=== PATIENT | male | born 1935 | race Caucasian/White ===

== ENCOUNTER 2022-05-23 15:23 | Inpatient (IN) | payer BC, OTHER ==
[~2022-05-23] VITALS: Ht 167.6 cm; Wt 68.2 kg
[2022-05-23 15:36] VITALS: BP_SYST 133
[2022-05-23] MEDS ORDERED: HYDROcodone/ACETAMIN 10-325 MG TAB PO ONE (15:45)
[2022-05-23] MEDS ORDERED: KETOROLAC TROMETHAMINE 30 MG VIAL IM ONE (15:45)
[2022-05-23] MEDS ORDERED: DILTIAZEM HCL 60 MG TABLET PO ONE (16:00)
[2022-05-23] MEDS ORDERED: dilTIAZem HCL IVP 5 MG/ML VIAL IVP ONE (16:00)
[2022-05-23 16:19] LABS: BASOPHILS % (AUTO) 0.5 % (0.0-2.0); EOSINOPHILS # (AUTO) 0.2 K/uL (0.0-0.4); EOSINOPHILS % (AUTO) 1.5 % (0.0-4.0); HEMATOCRIT 39.9 % (36-54); HEMOGLOBIN 13.3 g/dL (14.0-18.0); LYMPHOCYTES # (AUTO) 0.9 K/uL (1.0-5.5); LYMPHOCYTES % (AUTO) 9.4 % (20.5-51.5); MEAN CORPUSCULAR HEMOGLOBIN 28 pg (27-31); MEAN CORPUSCULAR HGB CONC 33 % (32-36); MEAN CORPUSCULAR VOLUME 85 fL (79.0-98.0); MONOCYTES # (AUTO) 0.6 K/uL (0.0-1.0); MONOCYTES % (AUTO) 6.3 % (1.7-9.3); NEUTROPHILS # (AUTO) 8.2 K/uL (1.8-7.7); NEUTROPHILS % (AUTO) 82.3 % (40.0-70.0); PLATELET COUNT (AUTO) 299 K/uL (130-430); RED BLOOD CELL COUNT(AUTO) 4.71 MIL/uL (4.2-6.2); RED CELL DISTRIBUTION WIDTH 18.4 % (9.0-15.0); WHITE BLOOD COUNT (AUTO) 9.9 K/uL (4.8-10.8)
[2022-05-23 16:44] LABS: ANION GAP 5 (5-15); CALCIUM 9.4 mg/dL (8.4-11.0); CHLORIDE 102 mmol/L (98-107); CREATININE 0.94 mg/dL (0.55-1.30); GLUCOSE 94 mg/dL (70-99); UREA NITROGEN, BLOOD 12 mg/dL (8-21)
[2022-05-23 16:48] LABS: INR 1.2 (0.80-1.20); PROTHROMBIN TIME 12.5 SECS (9.5-12.5)
[2022-05-23 16:51] LABS: ALANINE AMINOTRANSFERASE 13 U/L (12-78); ALBUMIN 2.9 g/dL (3.4-4.8); ASPARTATE AMINOTRANSFERASE 16 U/L (10-37); TOTAL BILIRUBIN 0.6 mg/dL (0.0-1.0)
[2022-05-23] MEDS ORDERED: CAS50 (20:18)
[2022-05-23] MEDS ORDERED: MECL-225 PO (20:29)
[2022-05-23] MEDS ORDERED: CALC117719 (20:29)
[2022-05-23] MEDS ORDERED: TAMS-11 PO (20:29)
[2022-05-23] MEDS ORDERED: MES60 PO (20:29)
[2022-05-23] MEDS ORDERED: APIX5TAB4 PO (20:29)
[2022-05-23] MEDS ORDERED: DOCU-144 PO (20:29)
[2022-05-23] MEDS ORDERED: CLON0.1T PO (20:29)
[2022-05-23] MEDS ORDERED: OMEP20CA15 PO (20:29)
[2022-05-23] MEDS ORDERED: DILT120C89 PO (20:29)
[2022-05-23 21:05] VITALS: BP_SYST 144
[2022-05-23] MEDS ORDERED: ACETAMINOPHEN 325 MG TABLET PO PRN ×3 (22:45→23:30)
[2022-05-23] MEDS ORDERED: IBUPROFEN 600 MG TABLET PO PRN ×2 (22:45→23:30)
[2022-05-23] MEDS ORDERED: KETOROLAC TROMETHAMINE 30 MG VIAL IVP PRN ×2 (22:45→23:30)
[2022-05-23] MEDS ORDERED: KETOROLAC TROMETHAMINE 30 MG VIAL IVP SCH (22:45)
[2022-05-23] MEDS ORDERED: cloNIDine HCL 0.1 MG TABLET PO PRN (23:30)
[2022-05-23] MEDS ORDERED: LORazepam 2 MG/ML VIAL IVP PRN (23:30)
[2022-05-23] MEDS ORDERED: ONDANSETRON HCL 4 MG/2 ML VIAL IVP PRN (23:30)
[2022-05-24] VITALS: BP_SYST 135
[2022-05-24 05:52] LABS: BASOPHILS # (AUTO) 0.1 K/uL (0.0-0.2); EOSINOPHILS # (AUTO) 0.5 K/uL (0.0-0.4); EOSINOPHILS % (AUTO) 6.8 % (0.0-4.0); HEMATOCRIT 39.2 % (36-54); HEMOGLOBIN 12.9 g/dL (14.0-18.0); LYMPHOCYTES # (AUTO) 1.4 K/uL (1.0-5.5); LYMPHOCYTES % (AUTO) 19.4 % (20.5-51.5); MEAN CORPUSCULAR HEMOGLOBIN 28 pg (27-31); MEAN CORPUSCULAR HGB CONC 33 % (32-36); MEAN CORPUSCULAR VOLUME 85 fL (79.0-98.0); MONOCYTES # (AUTO) 0.6 K/uL (0.0-1.0); MONOCYTES % (AUTO) 9.1 % (1.7-9.3); NEUTROPHILS # (AUTO) 4.4 K/uL (1.8-7.7); NEUTROPHILS % (AUTO) 63.7 % (40.0-70.0); PLATELET COUNT (AUTO) 292 K/uL (130-430); RED BLOOD CELL COUNT(AUTO) 4.61 MIL/uL (4.2-6.2); RED CELL DISTRIBUTION WIDTH 18.4 % (9.0-15.0)
[2022-05-24 06:25] LABS: ALANINE AMINOTRANSFERASE 14 U/L (12-78); ALBUMIN 2.6 g/dL (3.4-4.8); ANION GAP 6 (5-15); ASPARTATE AMINOTRANSFERASE 15 U/L (10-37); CALCIUM 9.2 mg/dL (8.4-11.0); CHLORIDE 105 mmol/L (98-107); CHOLESTEROL 177 mg/dL (<200); CREATININE 0.82 mg/dL (0.55-1.30); GLUCOSE 76 mg/dL (70-99); HDL CHOLESTEROL 59 mg/dL (>45); PHOSPHORUS 3.1 mg/dL (2.7-4.5); THYROID STIMULATING HORMONE 1.95 uIu/mL (0.34-4.82); TOTAL BILIRUBIN 0.7 mg/dL (0.0-1.0); TRIGLYCERIDES 55 mg/dL (30-150); UREA NITROGEN, BLOOD 14 mg/dL (8-21)
[2022-05-24] MEDS: NORMAL SALINE 5 ML DISP.SYRIN IVF SCH ×3 (06:48→22:48)
[2022-05-24 08:00] VITALS: BP_SYST 120; BP_SYST 141
[2022-05-24] MEDS: PANTOPRAZOLE SODIUM 40 MG TAB PO SCH (08:26)
[2022-05-24] MEDS: TAMSULOSIN HCL 0.4 MG CAP PO SCH (08:26)
[2022-05-24] MEDS: CALCIUM CARBONATE 500 MG/ TAB.CHEW PO SCH ×4 (08:28→22:47)
[2022-05-24] MEDS: DOCUSATE SODIUM 100 MG CAPSULE PO SCH ×2 (08:28→22:47)
[2022-05-24] MEDS: DILTIAZEM HCL 120 MG CAP.SR.24H PO SCH (08:28)
[2022-05-24] MEDS: pyRIDostigmine bromide 60 MG TABLET PO SCH ×2 (08:28→22:47)
[2022-05-24] MEDS: BICALUTAMIDE 50 MG TABLET PO SCH (08:39)
[2022-05-24] MEDS ORDERED: OMEPRAZOLE Non-Formulary 20 MG CAPSULE.DR PO SCH (09:00)
[2022-05-24] MEDS ORDERED: APIXABAN 2.5 MG TABLET PO SCH (09:00)
[2022-05-24 11:29] VITALS: BP_SYST 128
[2022-05-24] MEDS ORDERED: METOPROLOL SUCCINATE 25 MG TAB.SR.24H (TOPROL XL) PO ONE (12:45)
[2022-05-24 15:35] VITALS: BP_SYST 107
[2022-05-24 21:10] VITALS: BP_SYST 137
[2022-05-25] VITALS: BP_SYST 132
[2022-05-25 03:39] VITALS: BP_SYST 137
[2022-05-25 05:51] LABS: BASOPHILS # (AUTO) 0.1 K/uL (0.0-0.2); BASOPHILS % (AUTO) 0.6 % (0.0-2.0); EOSINOPHILS # (AUTO) 0.6 K/uL (0.0-0.4); EOSINOPHILS % (AUTO) 7.2 % (0.0-4.0); HEMATOCRIT 38.8 % (36-54); HEMOGLOBIN 12.8 g/dL (14.0-18.0); LYMPHOCYTES # (AUTO) 1.5 K/uL (1.0-5.5); LYMPHOCYTES % (AUTO) 18.1 % (20.5-51.5); MEAN CORPUSCULAR HEMOGLOBIN 28 pg (27-31); MEAN CORPUSCULAR HGB CONC 33 % (32-36); MEAN CORPUSCULAR VOLUME 84 fL (79.0-98.0); MONOCYTES # (AUTO) 0.7 K/uL (0.0-1.0); MONOCYTES % (AUTO) 8.5 % (1.7-9.3); NEUTROPHILS # (AUTO) 5.4 K/uL (1.8-7.7); NEUTROPHILS % (AUTO) 65.6 % (40.0-70.0); PLATELET COUNT (AUTO) 294 K/uL (130-430); RED BLOOD CELL COUNT(AUTO) 4.59 MIL/uL (4.2-6.2); RED CELL DISTRIBUTION WIDTH 18.3 % (9.0-15.0); WHITE BLOOD COUNT (AUTO) 8.2 K/uL (4.8-10.8)
[2022-05-25] MEDS: NORMAL SALINE 5 ML DISP.SYRIN IVF SCH ×3 (06:01→22:40)
[2022-05-25 06:13] LABS: ANION GAP 8 (5-15); CALCIUM 9.4 mg/dL (8.4-11.0); CHLORIDE 105 mmol/L (98-107); CREATININE 0.82 mg/dL (0.55-1.30); GLUCOSE 86 mg/dL (70-99); UREA NITROGEN, BLOOD 14 mg/dL (8-21)
[2022-05-25 08:00] VITALS: BP_SYST 152
[2022-05-25] MEDS: PANTOPRAZOLE SODIUM 40 MG TAB PO SCH (08:48)
[2022-05-25] MEDS: DILTIAZEM HCL 120 MG CAP.SR.24H PO SCH (08:48)
[2022-05-25] MEDS: METOPROLOL SUCCINATE 25 MG TAB.SR.24H (TOPROL XL) PO SCH (08:48)
[2022-05-25] MEDS: TAMSULOSIN HCL 0.4 MG CAP PO SCH (08:48)
[2022-05-25] MEDS: pyRIDostigmine bromide 60 MG TABLET PO SCH ×2 (08:48→22:33)
[2022-05-25] MEDS: CALCIUM CARBONATE 500 MG/ TAB.CHEW PO SCH ×4 (08:49→22:33)
[2022-05-25] MEDS: BICALUTAMIDE 50 MG TABLET PO SCH (08:49)
[2022-05-25] MEDS: DOCUSATE SODIUM 100 MG CAPSULE PO SCH ×2 (08:49→22:33)
[2022-05-25 11:33] VITALS: BP_SYST 149
[2022-05-25 15:42] VITALS: BP_SYST 106
[2022-05-25 20:30] VITALS: BP_SYST 118
[2022-05-26 00:26] VITALS: BP_SYST 118
[2022-05-26 00:34] VITALS: BP_SYST 146
[2022-05-26] MEDS: NORMAL SALINE 5 ML DISP.SYRIN IVF SCH ×2 (05:27→13:36)
[2022-05-26 05:31] LABS: ANION GAP 9 (5-15); CALCIUM 9.5 mg/dL (8.4-11.0); CHLORIDE 103 mmol/L (98-107); CREATININE 0.85 mg/dL (0.55-1.30); GLUCOSE 83 mg/dL (70-99); UREA NITROGEN, BLOOD 15 mg/dL (8-21)
[2022-05-26 05:39] LABS: BASOPHILS % (AUTO) 0.5 % (0.0-2.0); EOSINOPHILS # (AUTO) 0.4 K/uL (0.0-0.4); EOSINOPHILS % (AUTO) 4.8 % (0.0-4.0); HEMOGLOBIN 13.1 g/dL (14.0-18.0); LYMPHOCYTES # (AUTO) 1.8 K/uL (1.0-5.5); LYMPHOCYTES % (AUTO) 22.6 % (20.5-51.5); MEAN CORPUSCULAR HEMOGLOBIN 28 pg (27-31); MEAN CORPUSCULAR HGB CONC 33 % (32-36); MEAN CORPUSCULAR VOLUME 85 fL (79.0-98.0); MONOCYTES # (AUTO) 0.6 K/uL (0.0-1.0); MONOCYTES % (AUTO) 8.1 % (1.7-9.3); NEUTROPHILS # (AUTO) 5.1 K/uL (1.8-7.7); PLATELET COUNT (AUTO) 297 K/uL (130-430); RED BLOOD CELL COUNT(AUTO) 4.72 MIL/uL (4.2-6.2); RED CELL DISTRIBUTION WIDTH 18.7 % (9.0-15.0)
[2022-05-26 08:00] VITALS: BP_SYST 132
[2022-05-26] MEDS: TAMSULOSIN HCL 0.4 MG CAP PO SCH (08:27)
[2022-05-26] MEDS: CALCIUM CARBONATE 500 MG/ TAB.CHEW PO SCH ×3 (08:27→17:14)
[2022-05-26] MEDS: pyRIDostigmine bromide 60 MG TABLET PO SCH (08:27)
[2022-05-26] MEDS: PANTOPRAZOLE SODIUM 40 MG TAB PO SCH (08:27)
[2022-05-26] MEDS: DOCUSATE SODIUM 100 MG CAPSULE PO SCH (08:27)
[2022-05-26] MEDS: METOPROLOL SUCCINATE 25 MG TAB.SR.24H (TOPROL XL) PO SCH (08:28)
[2022-05-26] MEDS: DILTIAZEM HCL 120 MG CAP.SR.24H PO SCH (08:28)
[2022-05-26] MEDS: BICALUTAMIDE 50 MG TABLET PO SCH (08:29)
[2022-05-26 11:26] VITALS: BP_SYST 143
[2022-05-26 15:21] VITALS: BP_SYST 120
[2022-05-26 16:26] VITALS: BP_SYST 120
== END 2022-05-26 18:40 | disposition home health service (06) | DRG 552 ==
LOC: SED 15:23 → STU 18:38
PROVIDERS: ADMIT Preventive Medicine Preventive Medicine/Occupational Environmental Medicine; ATTEND Preventive Medicine Preventive Medicine/Occupational Environmental Medicine
DX: M51.36 Other intervertebral disc degeneration, lumbar region (principal); E44.1 Mild protein-calorie malnutrition; I48.91 Unspecified atrial fibrillation; W01.0XXA Fall on same level from slipping, tripping and stumbling without subsequent striking against object, initial encounter; E87.6 Hypokalemia; I25.10 Atherosclerotic heart disease of native coronary artery without angina pectoris; I10 Essential (primary) hypertension; Z20.822 Contact with and (suspected) exposure to COVID-19; I35.0 Nonrheumatic aortic (valve) stenosis; E78.5 Hyperlipidemia, unspecified; F03.90 Unspecified dementia, unspecified severity, without behavioral disturbance, psychotic disturbance, mood disturbance, and anxiety
CPT/HCPCS: 36415; 71045; 72131; 76376; 80048; 80053; 80061; 83735; 83880; 84100; 84443; 84484; 85025; 85610-TC; 85730-TC; 87081; 93005; 93306; 96372; 96374; 97110-GP; 97116-GP; 97530-GP; 99285; G0378; J1885; J3490